=== PATIENT | female | born 1940 | race African-American/Black ===

== ENCOUNTER 2021-08-18 14:38 | Emergency (ER) | payer OTHER ==
[~2021-08-18] VITALS: Ht 170.2 cm; Wt 71.2 kg
[2021-08-18 15:07] LABS: ABSOLUTE NEUTROPHILS 2.9 thou/uL (1.4-8.2); HEMATOCRIT 42.5 % (37.0-47.0); HEMOGLOBIN 13.6 gm/dL (12.0-15.0); LYMPHOCYTES 29.8 % (24.0-44.0); MCH 30.8 pg (26.0-34.0); MCHC 32.1 g/dL (28.0-37.0); MCV 95.8 fL (80.0-100.0); MONOCYTES 9.6 % (1.0-8.0); PLATELET COUNT 145 thou/uL (150-400); POLYS 56.6 % (36.0-66.0); RBC 4.43 mil/uL (4.20-5.00); RDW 14.9 % (10.5-14.5); WBC 5.2 thou/uL (4.0-11.0)
[2021-08-18 15:15] LABS: CALCIUM 9.2 mg/dL (8.5-10.1); CREATININE 1.5 mg/dL (0.6-1.0); POTASSIUM 4.1 mmol/L (3.5-5.1)
[2021-08-18 15:25] LABS: ALBUMIN 2.9 g/dL (3.4-5.0); TOTAL BILIRUBIN 0.3 mg/dL (0.2-1.0); TOTAL PROTEIN 6.8 g/dL (6.4-8.2)
[2021-08-18] MEDS ORDERED: PREDNISONE 20 M20 MG PO (17:50)
[2021-08-18 18:02] VITALS: BP 154/86
--- NOTE | 2021-08-19 12:06 | EKG ---
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: : 1940 Requested By: Yaritza Anderson Order Number: [id number] MD: Francisco Javier Dubon Measurements Intervals [place] Rate: 62 P: 58 SC: 155 QRS: -63 QRSD: 167 T: 125 QT: 462 QTc: 470 Interpretive Statements Sinus rhythm Atrial premature complex Probable left atrial enlargement Left bundle branch block No previous ECG available for comparison Electronically Signed On 08-19-2021 12:05:48 CDT by Francisco Javier Dubon [email or web address] <ELECTRONICALLY SIGNED> By: Francisco Javier Dubon MD, [facility] 08/19/21 1205 1441 1441 Francisco Javier Dubon MD, FACC /EPI
== END 2021-08-18 18:03 | disposition home or self-care (01) ==
LOC: ER 14:38
PROVIDERS: Emergency Medicine
DX: J44.1 Chronic obstructive pulmonary disease with (acute) exacerbation (principal); I10 Essential (primary) hypertension; Z20.822 Contact with and (suspected) exposure to COVID-19